=== PATIENT | female | born 1955 | race Caucasian/White ===

== ENCOUNTER 2017-12-06 22:46 | Inpatient (IN) | payer MEDICAID ==
[~2017-12-06] VITALS: Ht 167.6 cm; Wt 102.9 kg
[2017-12-06] MEDS ORDERED: NITROGLYCERIN/D5W PMX 250 ML IV SCH (22:50)
[2017-12-06] MEDS ORDERED: NITROGLYCERIN/D5W PMX 250 ML ONE (22:51)
[2017-12-06] MEDS ORDERED: NITROGLYCERIN SINGLE TAB 0.4 MG SL ONE ×2 (22:51→23:00)
[2017-12-06] MEDS ORDERED: FUROSEMIDE 40 MG/4 ML ONE (22:51)
[2017-12-06] MEDS ORDERED: LISINOPRIL (22:54)
[2017-12-06] MEDS ORDERED: ATORVASTATIN (22:54)
[2017-12-06] MEDS ORDERED: DIGOXIN (22:54)
[2017-12-06] MEDS ORDERED: CARVEDILOL (22:54)
[2017-12-06] MEDS ORDERED: XARELTO (22:54)
[2017-12-06] MEDS ORDERED: LORazepam 2 MG/ML, 1ML ONE (22:59)
[2017-12-06] MEDS ORDERED: FUROSEMIDE 40 MG/4 ML IV ONE (23:00)
[2017-12-06] MEDS ORDERED: LORazepam 2 MG/ML, 1ML IVPush ONE ×2 (23:00→23:30)
[2017-12-06] MEDS ORDERED: SODIUM CHLORIDE FLUSH 10ML SYR IVF ONE (23:00)
[2017-12-06 23:12] LABS: BASOPHILS # (AUTO) 0.07 x10^3/uL (0-0.1); BASOPHILS % (AUTO) 1 % (0-1); EOSINOPHILS # (AUTO) 0.06 x10^3/uL (0-0.4); EOSINOPHILS % (AUTO) 1 % (1-7); LYMPHOCYTES # (AUTO) 2.12 x10^3/uL (1-3.4); LYMPHOCYTES % (AUTO) 26 % (22-44); MD NO; MEAN CORPUSCULAR HEMOGLOBIN 28.2 pg (27.0-34.8); MEAN CORPUSCULAR HGB CONC 32.5 g/dL (32.4-35.8); MEAN CORPUSCULAR VOLUME 86.5 fL (80-100); MEAN PLATELET VOLUME 8.2 fL (7.4-10.4); MONOCYTES # (AUTO) 0.76 x10^3/uL (0.2-0.8); MONOCYTES % (AUTO) 9 % (2-9); NEUTROPHILS % (AUTO) 63 % (42-75); PLATELET COUNT 271 x10^3/uL (130-400); RED CELL DISTRIBUTION WIDTH 16.7 % (9.6-15.2)
[2017-12-06] MEDS ORDERED: DIGOXIN 0.25 MG/ML, 2ML ONE ×2 (23:15→23:48)
[2017-12-06 23:24] LABS: ALANINE AMINOTRANSFERASE 59 U/L (12-78); ALBUMIN 2.8 g/dL (3.4-5.0); ANION GAP 7 mmol/L (5-15); CALCIUM 8.7 mg/dL (8.5-10.1); CHLORIDE 107 mmol/L (98-107); CREATININE 1.16 mg/dL (0.55-1.02)
[2017-12-06 23:26] LABS: INTERNATIONAL NORMALIZED RATIO 1.15 (0.93-1.1); PROTHROMBIN TIME 11.8 Seconds (9.6-11.5)
[2017-12-06 23:28] LABS: ALKALINE PHOSPHATASE 136 U/L (45-117); BILIRUBIN,TOTAL 0.5 mg/dL (0.2-1.0); TOTAL PROTEIN 6.4 g/dL (6.4-8.2)
[2017-12-06] MEDS ORDERED: DIGOXIN 0.25 MG/ML, 2ML IVPush ONE (23:30)
[2017-12-07] MEDS ORDERED: DIGOXIN 0.25 MG/ML, 2ML IVPush SCH
[2017-12-07] MEDS ORDERED: DIGOXIN 0.25 MG/ML, 2ML ONE (00:20)
[2017-12-07] MEDS ORDERED: RIVAROXABAN 15 MG TABLET PO SCH (00:30)
[2017-12-07] MEDS ORDERED: DIGOXIN 0.25 MG/ML, 2ML IVPush ONE ×2 (00:30)
[2017-12-07] MEDS ORDERED: NITROGLYCERIN/D5W PMX 250 ML IV SCH ×2 (00:30→22:50)
[2017-12-07] MEDS ORDERED: ACETAMINOPHEN 650 MG/20.3 ML UDC PO PRN (00:30)
[2017-12-07] MEDS ORDERED: morphine SULFATE 10 MG/ML, 1ML IVPush PRN (00:30)
[2017-12-07 01:04] LABS: TROPONIN I 0.037 ng/mL (0.000-0.045)
[2017-12-07] MEDS ORDERED: ATORVASTATIN 40 MG TABLET ONE (01:19)
[2017-12-07] MEDS: ATORVASTATIN 40 MG TABLET PO SCH ×2 (01:32→21:46)
[2017-12-07] MEDS: NICOTINE 7 MG/24 HR PATCH.TD24 TD SCH ×2 (01:33→02:08)
[2017-12-07] MEDS: FUROSEMIDE 20 MG/2 ML IVPush SCH ×2 (01:36→12:43)
[2017-12-07] MEDS: LORazepam 2 MG/ML, 1ML IVPush PRN ×2 (01:48→04:28)
[2017-12-07] MEDS ORDERED: LABETALOL 5MG/ML, 20ML IVPush ONE (02:30)
[2017-12-07] MEDS ORDERED: LABETALOL 5MG/ML, 20ML IVPush PRN ×2 (02:30→03:30)
[2017-12-07] MEDS ORDERED: LABETALOL 5MG/ML, 20ML ONE (02:35)
[2017-12-07] MEDS: CARVEDILOL 6.25 MG TABLET PO SCH ×2 (04:28→18:11)
[2017-12-07 04:40] LABS: ANION GAP 10 mmol/L (5-15); CALCIUM 8.5 mg/dL (8.5-10.1); CHLORIDE 106 mmol/L (98-107)
[2017-12-07 04:47] LABS: CREATININE 0.97 mg/dL (0.55-1.02); TROPONIN I 0.039 ng/mL (0.000-0.045)
[2017-12-07 04:59] VITALS: BP 154/116
[2017-12-07] MEDS ORDERED: POTASSIUM CHLORIDE 20 MEQ TAB.ER.PRT PO SCH (09:00)
[2017-12-07] MEDS: DIGOXIN 0.25 MG/ML, 2ML IVPush SCH (10:10)
[2017-12-07] MEDS: SPIRONOLACTONE 25 MG TABLET PO SCH (10:10)
[2017-12-07] MEDS: POTASSIUM CHLORIDE 20 MEQ TAB.ER.PRT PO SCH ×2 (10:10→21:45)
[2017-12-07] MEDS: LISINOPRIL 10 MG TABLET PO SCH (10:10)
[2017-12-07] MEDS: RIVAROXABAN 20 MG TABLET PO SCH (11:22)
[2017-12-07 12:48] LABS: TROPONIN I 0.036 ng/mL (0.000-0.045)
[2017-12-07 19:57] VITALS: BP 103/72
[2017-12-08] MEDS: NICOTINE 7 MG/24 HR PATCH.TD24 TD SCH (00:30)
[2017-12-08 00:46] VITALS: BP 116/81
[2017-12-08] MEDS: FUROSEMIDE 20 MG/2 ML IVPush SCH ×3 (01:45→12:34)
[2017-12-08 05:13] LABS: BASOPHILS # (AUTO) 0.03 x10^3/uL (0-0.1); BASOPHILS % (AUTO) 0 % (0-1); EOSINOPHILS # (AUTO) 0.08 x10^3/uL (0-0.4); EOSINOPHILS % (AUTO) 1 % (1-7); LYMPHOCYTES # (AUTO) 1.93 x10^3/uL (1-3.4); LYMPHOCYTES % (AUTO) 31 % (22-44); MD NO; MEAN CORPUSCULAR HGB CONC 32.4 g/dL (32.4-35.8); MEAN CORPUSCULAR VOLUME 86.3 fL (80-100); MEAN PLATELET VOLUME 8.2 fL (7.4-10.4); MONOCYTES # (AUTO) 0.63 x10^3/uL (0.2-0.8); MONOCYTES % (AUTO) 10 % (2-9); NEUTROPHILS # (AUTO) 3.64 x10^3/uL (1.8-6.8); NEUTROPHILS % (AUTO) 58 % (42-75); PLATELET COUNT 275 x10^3/uL (130-400); RED CELL DISTRIBUTION WIDTH 16.5 % (9.6-15.2)
[2017-12-08 05:20] LABS: CHLORIDE 106 mmol/L (98-107)
[2017-12-08 05:37] LABS: ALANINE AMINOTRANSFERASE 44 U/L (12-78); ALBUMIN 2.7 g/dL (3.4-5.0); ALKALINE PHOSPHATASE 127 U/L (45-117); ANION GAP 8 mmol/L (5-15); BILIRUBIN,TOTAL 1.1 mg/dL (0.2-1.0); CALCIUM 8.8 mg/dL (8.5-10.1); CHOL/HDL RATIO 6.2; CHOLESTEROL, TOTAL 105 mg/dL (140-239); HDL CHOL % 16 % (28-40); HDL CHOLESTEROL (DIRECT) 17 mg/dL (40-60); LDL CHOLESTEROL,CALCULATED 65 mg/dL (54-169); LDL/HDL RATIO 3.8 (0.5-3.0); TOTAL PROTEIN 6.6 g/dL (6.4-8.2); TRIGLYCERIDES 114 mg/dL (50-200); VLDL CHOLESTEROL 23 mg/dL (0-25)
[2017-12-08] MEDS: RIVAROXABAN 20 MG TABLET PO SCH (06:40)
[2017-12-08] MEDS: CARVEDILOL 6.25 MG TABLET PO SCH ×2 (06:40→18:06)
[2017-12-08 06:47] VITALS: BP 127/89
[2017-12-08] MEDS: SPIRONOLACTONE 25 MG TABLET PO SCH (09:02)
[2017-12-08] MEDS: DIGOXIN 0.25 MG/ML, 2ML IVPush SCH (09:03)
[2017-12-08] MEDS: LISINOPRIL 10 MG TABLET PO SCH (09:03)
[2017-12-08 12:45] VITALS: BP 119/86
[2017-12-08] MEDS ORDERED: MAGNESIUM SULFATE PMX 2GM/50ML 50 ML IV ONE (16:00)
[2017-12-08 19:05] VITALS: BP 147/81
[2017-12-08] MEDS: ATORVASTATIN 40 MG TABLET PO SCH (19:57)
[2017-12-08 23:30] VITALS: BP 130/90
[2017-12-09 00:22] VITALS: BP 143/98
[2017-12-09] MEDS: NICOTINE 7 MG/24 HR PATCH.TD24 TD SCH (00:30)
[2017-12-09] MEDS: FUROSEMIDE 20 MG/2 ML IVPush SCH ×2 (00:39→12:37)
[2017-12-09] MEDS: CARVEDILOL 6.25 MG TABLET PO SCH ×2 (05:17→17:39)
[2017-12-09] MEDS: RIVAROXABAN 20 MG TABLET PO SCH (05:17)
[2017-12-09 06:08] LABS: ALANINE AMINOTRANSFERASE 39 U/L (12-78); ALBUMIN 2.8 g/dL (3.4-5.0); ANION GAP 9 mmol/L (5-15); CALCIUM 9.2 mg/dL (8.5-10.1); CHLORIDE 106 mmol/L (98-107); CREATININE 0.94 mg/dL (0.55-1.02)
[2017-12-09 06:09] LABS: ALKALINE PHOSPHATASE 134 U/L (45-117); BILIRUBIN,TOTAL 0.8 mg/dL (0.2-1.0); TOTAL PROTEIN 6.8 g/dL (6.4-8.2)
[2017-12-09 06:39] LABS: BASOPHILS # (AUTO) 0.05 x10^3/uL (0-0.1); BASOPHILS % (AUTO) 1 % (0-1); EOSINOPHILS # (AUTO) 0.12 x10^3/uL (0-0.4); EOSINOPHILS % (AUTO) 2 % (1-7); LYMPHOCYTES # (AUTO) 2.23 x10^3/uL (1-3.4); LYMPHOCYTES % (AUTO) 27 % (22-44); MD NO; MEAN CORPUSCULAR HEMOGLOBIN 28.3 pg (27.0-34.8); MEAN CORPUSCULAR HGB CONC 32.5 g/dL (32.4-35.8); MEAN CORPUSCULAR VOLUME 86.9 fL (80-100); MEAN PLATELET VOLUME 7.8 fL (7.4-10.4); MONOCYTES # (AUTO) 0.72 x10^3/uL (0.2-0.8); MONOCYTES % (AUTO) 9 % (2-9); NEUTROPHILS # (AUTO) 5.09 x10^3/uL (1.8-6.8); NEUTROPHILS % (AUTO) 62 % (42-75); PLATELET COUNT 307 x10^3/uL (130-400); RED BLOOD COUNT 5.34 x10^6/uL (3.82-5.3); RED CELL DISTRIBUTION WIDTH 16.4 % (9.6-15.2)
[2017-12-09 06:51] VITALS: BP 135/91
[2017-12-09] MEDS ORDERED: POTASSIUM CHLORIDE 20 MEQ TAB.ER.PRT PO ONE (07:00)
[2017-12-09] MEDS: DIGOXIN 0.25 MG/ML, 2ML IVPush SCH (09:02)
[2017-12-09] MEDS: LISINOPRIL 10 MG TABLET PO SCH (09:03)
[2017-12-09] MEDS: SPIRONOLACTONE 25 MG TABLET PO SCH (09:03)
[2017-12-09 12:18] VITALS: BP 133/88
[2017-12-09 18:52] VITALS: BP 137/90
[2017-12-09] MEDS: ATORVASTATIN 40 MG TABLET PO SCH (22:19)
[2017-12-10 00:28] VITALS: BP 144/98
[2017-12-10] MEDS: FUROSEMIDE 20 MG/2 ML IVPush SCH ×2 (00:36→13:12)
[2017-12-10] MEDS: NICOTINE 7 MG/24 HR PATCH.TD24 TD SCH (00:36)
[2017-12-10 05:40] VITALS: BP 141/100
[2017-12-10] MEDS: RIVAROXABAN 20 MG TABLET PO SCH (05:41)
[2017-12-10] MEDS: CARVEDILOL 6.25 MG TABLET PO SCH (05:41)
[2017-12-10 07:10] VITALS: BP 129/86
[2017-12-10] MEDS: SPIRONOLACTONE 25 MG TABLET PO SCH (09:01)
[2017-12-10] MEDS: DIGOXIN 0.25 MG/ML, 2ML IVPush SCH (09:01)
[2017-12-10] MEDS: LISINOPRIL 10 MG TABLET PO SCH (09:01)
[2017-12-10 12:26] VITALS: BP 118/82
[2017-12-10] MEDS ORDERED: CARV6.2512 PO (12:32)
[2017-12-10] MEDS ORDERED: SPIR25TA PO (12:32)
== END 2017-12-10 16:30 | disposition home or self-care (01) | DRG 291 ==
LOC: ED 12-07 01:07 → EDIP 12-07 01:09 → CCU 12-07 01:12 → 5SO 12-07 15:54 → DCLOUNGE 12-10 16:19
PROVIDERS: ADMIT Internal Medicine; ATTEND Family Medicine
PROC: 5A09457 Assistance with Respiratory Ventilation, 24-96 Consecutive Hours, Continuous Positive Airway Pressure (ICD-10-PCS; principal; 2017-12-06)
DX: I11.0 Hypertensive heart disease with heart failure (principal); I50.31 Acute diastolic (congestive) heart failure; J96.01 Acute respiratory failure with hypoxia; E44.1 Mild protein-calorie malnutrition; D68.69 Other thrombophilia; E87.3 Alkalosis; I48.2 Chronic atrial fibrillation; J44.9 Chronic obstructive pulmonary disease, unspecified; I25.10 Atherosclerotic heart disease of native coronary artery without angina pectoris; E78.5 Hyperlipidemia, unspecified; E78.00 Pure hypercholesterolemia, unspecified; E66.01 Morbid (severe) obesity due to excess calories; F17.200 Nicotine dependence, unspecified, uncomplicated; G40.909 Epilepsy, unspecified, not intractable, without status epilepticus; I35.1 Nonrheumatic aortic (valve) insufficiency; I07.1 Rheumatic tricuspid insufficiency; I87.8 Other specified disorders of veins; Z68.37 Body mass index [BMI] 37.0-37.9, adult; Z79.01 Long term (current) use of anticoagulants; Z79.899 Other long term (current) drug therapy; Z90.710 Acquired absence of both cervix and uterus; Z91.19 Patient's noncompliance with other medical treatment and regimen; Z95.0 Presence of cardiac pacemaker
CPT/HCPCS: 36415; 36600; 71045; 80048; 80053; 80061; 80162; 82803; 83735; 83880; 84100; 84484; 85025; 85610; 85730; 87081; 93005; 93306; 94660; 96374; 96375; 99291; G0378; J1940; J1160; J2060; J3475

== ENCOUNTER 2019-04-18 21:28 | Emergency (ER) | payer MEDICAID ==
[~2019-04-18] VITALS: Ht 167.6 cm; Wt 120.0 kg
[~2019-04-18 21:28] MED LIST: ATORVASTATIN; CARV6.2512 PO; CARVEDILOL; DIGOXIN; LISINOPRIL; SPIR25TA PO; XARELTO
[2019-04-18 21:34] VITALS: BP 171/105
--- NOTE | 2019-04-18 21:59 | NUR ---
attempt to call pt to room, not in lobby
--- NOTE | 2019-04-18 22:11 | NUR ---
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
--- NOTE | 2019-04-18 22:39 | NUR ---
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
== END 2019-04-18 22:56 | disposition left against medical advice (07) ==
LOC: ED 22:50
DX: R06.02 Shortness of breath (principal); Z53.21 Procedure and treatment not carried out due to patient leaving prior to being seen by health care provider
CPT/HCPCS: 93005